=== PATIENT | male | born 1975 | race Two or more races ===

== ENCOUNTER 2024-02-12 18:35 | Emergency (ER) | payer MEDICARE, MEDICAID ==
[~2024-02-12] VITALS: Ht 175.3 cm; Wt 180.0 kg
[2024-02-12 18:48] VITALS: TEMP 98.4
[2024-02-12 19:00] LABS: GLUCOMETER DEV NAME(LOC) ER.7; GLUCOSE,POINT OF CARE 100 MG/DL (70-110)
[2024-02-12 20:21] LABS: BASOPHILS % (AUTO) 0.6 % (0.0-2.0); EOSINOPHILS % (AUTO) 1.6 % (1.0-6.0); LYMPHOCYTES # (AUTO) 1.6 K/uL (1.0-4.8); LYMPHOCYTES % (AUTO) 17.9 % (22.0-44.0); MEAN CORPUSCULAR HEMOGLOBIN 27.2 pg (26.0-34.0); MEAN CORPUSCULAR HGB CONC 31.6 G/dL (31.0-37.0); MEAN CORPUSCULAR VOLUME 86 fL (80-100); MONOCYTES # (AUTO) 0.6 K/uL (0.1-1.0); MONOCYTES % (AUTO) 6.9 % (2.0-9.0); NEUTROPHILS # (AUTO) 6.6 K/uL (1.8-7.7); PLATELET COUNT (AUTO) 296 K/uL (150-450); RED BLOOD CELL COUNT(AUTO) 4.41 MIL/uL (4.50-5.90); RED CELL DISTRIBUTION WIDTH 15.8 % (11.5-14.5); WHITE BLOOD COUNT (AUTO) 9.1 K/uL (4.5-11.0)
[2024-02-12] MEDS: PIPERACILLIN/TAZO 3.375 GM/D5W 50 ML IV ONE (20:21)
[2024-02-12] MEDS: VANCOMYCIN 1GM/WATER(PEG/NADA) 200 ML IV ONE (20:25)
[2024-02-12 20:36] LABS: LACTIC ACID 0.7 mmol/L (0.4-2.0)
[2024-02-12 20:48] VITALS: BP 123/78; PULSE 80; RESP 18
[2024-02-12 20:50] LABS: ANION GAP 8 mmol/L (8-16); CALCIUM, TOTAL 8.2 mg/dL (8.8-10.5); CARBON DIOXIDE 30 mmol/L (22-29); CHLORIDE 101 mmol/L (98-107); CREATININE 0.85 mg/dL (0.60-1.30); GLOMERULAR FILTR. RATE CALC > 60 mL/min (>60); GLUCOSE,RANDOM 96 mg/dL (70-110); SODIUM SERUM 139 mmol/L (136-145); UREA NITROGEN, BLOOD 10 mg/dL (7-18)
[2024-02-12 20:58] LABS: ALANINE AMINOTRANSFERASE 23 U/L (12-78); ALBUMIN 2.7 g/dL (3.4-5.0); ALKALINE PHOSPHATASE 83 U/L (46-116); ASPARTATE AMINOTRANSFERASE 27 U/L (15-37); BILIRUBIN,TOTAL 0.4 mg/dL (0.1-1.0); TOTAL PROTEIN, SERUM 7.8 g/dL (6.4-8.2)
[2024-02-12] MEDS ORDERED: CEPH-558 PO (21:55)
[2024-02-12] MEDS ORDERED: SULF-261 PO (21:55)
[2024-02-12] MEDS ORDERED: IBUP-1492 PO (21:55)
== END 2024-02-12 22:38 | disposition home or self-care (01) ==
LOC: EMS 18:35
DX: L03.311 Cellulitis of abdominal wall (principal); F17.210 Nicotine dependence, cigarettes, uncomplicated; F12.90 Cannabis use, unspecified, uncomplicated
CPT/HCPCS: 99284; 96365; 80053; 82962; 83605; 85025; 87040; 36415; 96368; J2543; J3490